=== PATIENT | male | born 1955 | race Caucasian/White ===

== ENCOUNTER 2017-02-03 21:00 | Inpatient (IN) | payer OTHER ==
[2017-02-03] MEDS ORDERED: NACL 0.9% 3 ML SYG IV (22:00)
[2017-02-03] MEDS ORDERED: DOCUSATE SODIUM 100 MG CAP PO (22:00)
[2017-02-03] MEDS ORDERED: ONDANSETRON 4 MG TAB PO (22:00)
[2017-02-03] MEDS ORDERED: morphine 2 MG INJ IV (22:00)
[2017-02-03] MEDS ORDERED: NITROGLYCERIN (SL) 0.4 MG TAB SL (22:00)
[2017-02-03] MEDS ORDERED: BISACODYL (EC) 5 MG TAB PO (22:00)
[2017-02-03] MEDS ORDERED: ACETAMINOPHEN 325 MG TAB PO (22:00)
[2017-02-03 22:13] LABS: ADD MAN DIFF? NO
[2017-02-03 22:16] LABS: BASOPHIL # 0.1 10^3/ul (0.0-0.1); BASOPHILS % 0.7 % (0.0-2.0); EOSINOPHILS # 0.1 10^3/ul (0.0-0.5); EOSINOPHILS % 0.8 % (0.0-7.0); HEMOGLOBIN 16.2 g/dl (14.0-18.0); LYMPHOCYTES # 2.8 10^3/ul (0.8-2.9); LYMPHOCYTES % 31.4 % (15.0-51.0); MEAN CORPUSCULAR HEMOGLOBIN 31.3 pg (29.0-33.0); MEAN PLATELET VOLUME 9.5 fl (7.4-10.4); MONOCYTE # 0.9 10^3/ul (0.3-0.9); MONOCYTES % 10.3 % (0.0-11.0); NEUTROPHILS % 56.5 % (39.0-77.0); PLATELET COUNT 209 10^3/UL (140-415); RED BLOOD COUNT 5.17 10^6/ul (4.70-6.10); RED CELL DISTRIBUTION WIDTH 12.9 % (11.5-14.5)
[2017-02-03 22:16] LABS: WHITE BLOOD COUNT 8.8 10^3/ul (4.8-10.8)
[2017-02-03 22:33] LABS: CREATINE KINASE 200 IU/L (23-200)
[2017-02-03 22:33] LABS: HEMOGLOBIN A1C 5.2 % (0-5.9)
[2017-02-03 22:35] LABS: ALANINE AMINOTRANSFERASE 104 IU/L (13-69); ALBUMIN 4.2 g/dl (3.3-4.9); ALKALINE PHOSPHATASE 49 IU/L (42-121); ANION GAP 13 (8-16); ASPARTATE AMINO TRANSFERASE 62 IU/L (15-46); BILIRUBIN,INDIRECT 1.1 mg/dl (0-1.1); BILIRUBIN,TOTAL 1.1 mg/dl (0.2-1.3); BLOOD UREA NITROGEN 17 mg/dl (7-20); CALCIUM 8.9 mg/dl (8.4-10.2); CARBON DIOXIDE 28 mmol/L (21-31); CHLORIDE 103 mmol/L (97-110); CREATININE 1.18 mg/dl (0.61-1.24); GLUCOSE 85 mg/dl (70-220); MAGNESIUM 1.7 mg/dl (1.7-2.5); POTASSIUM 4.4 mmol/L (3.5-5.1); SODIUM 140 mmol/L (135-144)
[2017-02-03 22:46] LABS: CK INDEX 1.4
[2017-02-03 23:07] LABS: CK-MB 2.87 ng/ml (0.0-2.4); TROPONIN-I < 0.012 ng/ml (0.00-0.12)
[2017-02-03] MEDS ORDERED: ATROPINE 1 MG/10 ML SYRINGE IV (23:30)
[2017-02-04 05:13] LABS: CREATINE KINASE 206 IU/L (23-200)
[2017-02-04 05:24] LABS: CK INDEX 1.3; TROPONIN-I 0.016 ng/ml (0.00-0.12)
[2017-02-04] MEDS ORDERED: MECLIZINE 12.5 MG TAB PO (09:00)
== END 2017-02-04 15:18 | disposition home or self-care (01) | DRG 310 ==
LOC: MS4 21:00
DX: R00.1 Bradycardia, unspecified (principal); R42 Dizziness and giddiness; G47.00 Insomnia, unspecified
CPT/HCPCS: 80053; 82550; 82553; 83036; 83735; 84443; 84484; 85025; 87081; 93306

== ENCOUNTER → 2017-06-21 | Outpatient (CLI) | payer OTHER | END | disposition home or self-care (01) | LOC: NUC 09:03 | DX: R94.31 Abnormal electrocardiogram [ECG] [EKG] (principal); I10 Essential (primary) hypertension; R07.9 Chest pain, unspecified | CPT/HCPCS: 78452; 93017 ==